=== PATIENT | male | born 1980 | race Caucasian/White ===

== ENCOUNTER 2019-04-16 17:03 | Emergency (ER) | payer OTHER ==
[2019-04-16] MEDS ORDERED: CYCLOBENZAPRINE HCL 10 MG TABLET (FP) PO ONE (17:12)
[2019-04-16] MEDS ORDERED: KETOROLAC TROMETHAMINE 60 MG/2 ML VIAL IM ONE (17:12)
--- NOTE | 2019-04-16 17:12 | PDOC ---
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, no urinary or bowel complaints Patient on brief exam: rt sciatica tenderness Patient ordered for: toradol and flexeril Patient to proceed to the ED Discharge Disposition - Diagnosis Lumbar spine strain - Discharge Dispostion Disposition: HOME Condition at time of disposition: Stable - Prescriptions Prescriptions: Cyclobenzaprine HCl [Flexeril 10 mg] 10 mg PO HS PRN #10 tablet PRN Reason: Muscle Spasms Ibuprofen [Motrin -] 600 mg PO TID #30 tablet - Referrals Referrals: Kahlil Pollock MD, [facility] [Staff Physician] - - Patient Instructions Additional Instructions: Please follow-up with neurosurgery in 2 to 3 days without fail for further evaluation and treatment options. Do not start the Motrin until tomorrow night. You may take the Flexeril tomorrow night as well. You were given a dose of both these medications in the emergency room. Return to the emergency room for worsening symptoms and again without fail please follow-up with neurosurgery in 2 to 3 days - Post Discharge Activity
[2019-04-16 17:16] VITALS: BP 151/90; PULSE 76; TEMP 98.1; BMI 34.4
[2019-04-16] MEDS ORDERED: KETOROLAC TROMETHAMINE 60 MG/2 ML VIAL ONE (17:31)
[2019-04-16] MEDS ORDERED: CYCLOBENZAPRINE HCL 10 MG TABLET (FP) ONE (17:31)
--- NOTE | 2019-04-16 17:34 | PDOC ---
History of Present Illness - General Chief Complaint: Back Pain Stated Complaint: back pain Time Seen by Provider: 04/16/19 17:09 - History of Present Illness Initial Comments: 04/16/19 17:32 39-year-old male without comorbidities presents for evaluation of low back pain which started after he bent down to tie his shoe. No radicular or systemic symptoms no loss of bowel bladder function or saddle paresthesias Past History - Past Medical History Allergies/Adverse Reactions: Allergies Allergy/AdvReac Type Severity Reaction Status Date / Time No Known Allergies Allergy Verified 04/16/19 17:12 Home Medications: Ambulatory Orders Cyclobenzaprine HCl [Flexeril 10 mg] 10 mg PO HS PRN #10 tablet 04/16/19 Ibuprofen [Motrin -] 600 mg PO TID #30 tablet 04/16/19 COPD: No - Psycho Social/Smoking Cessation Hx Smoking History: Never smoked Information on smoking cessation initiated: No Hx Alcohol Use: No Drug/Substance Use Hx: No Review of Systems - Review of Systems Constitutional: No: Fever : No: Incontinence Musculoskeletal: Yes: Back Pain Neurological: No: Numbness, Paresthesia *Physical Exam - Vital Signs Last Vital Signs Temp Pulse Resp BP Pulse Ox 98.1 F 76 18 151/90 99 04/16/19 17:09 04/16/19 17:09 04/16/19 17:09 04/16/19 17:09 04/16/19 17:09 - Physical Exam 04/16/19 17:33 Lumbar spine skin color and temperature normal no midline tenderness moderate right-sided paralumbar musculature spasm and tenderness. 5 out of 5 strength bilateral lower extremities without gross sensorimotor deficits thighs and calves soft and nontender negative straight leg raise test neurovascular intact. Medical Decision Making - Medical Decision Making 04/16/19 17:33 Toradol and Flexeril in the ER Motrin to start tomorrow at home as well as Flexeril. Follow-up with neurosurgery Discharge - Discharge Information Problems reviewed: Yes Clinical Impression/Diagnosis: Lumbar spine strain Clinical Impression/Diagnosis: (Ruled Out): Low back pain radiating down leg Condition: Stable Disposition: HOME - Admission No - Additional Discharge Information Prescriptions: Cyclobenzaprine HCl [Flexeril 10 mg] 10 mg PO HS PRN #10 tablet PRN Reason: Muscle Spasms Ibuprofen [Motrin -] 600 mg PO TID #30 tablet - Follow up/Referral Referrals: Kahlil Pollock MD, [facility] [Staff Physician] - - Patient Discharge Instructions Additional Instructions: Please follow-up with neurosurgery in 2 to 3 days without fail for further evaluation and treatment options. Do not start the Motrin until tomorrow night. You may take the Flexeril tomorrow night as well. You were given a dose of both these medications in the emergency room. Return to the emergency room for worsening symptoms and again without fail please follow-up with neurosurgery in 2 to 3 days - Post Discharge Activity
== END 2019-04-16 17:38 | disposition home or self-care (01) ==
LOC: JERFT 17:03
PROC: 3E0233Z Introduction of Anti-inflammatory into Muscle, Percutaneous Approach (ICD-10-PCS; principal; 2019-04-16)
DX: S33.5XXA Sprain of ligaments of lumbar spine, initial encounter (principal); X58.XXXA Exposure to other specified factors, initial encounter; Y93.9 Activity, unspecified; Y92.009 Unspecified place in unspecified non-institutional (private) residence as the place of occurrence of the external cause
CPT/HCPCS: 99282-25